=== PATIENT | male | born 1970 | race African-American/Black ===

== ENCOUNTER 2018-03-05 21:01 | Emergency (ER) | payer OTHER ==
--- OUTSIDE RECORDS SUMMARY | 2018-03-05 21:10 | XMS REPORT ---
:1970 External Reference #:[id number] Author Organization [facility] Address [address] [place] [address] [place] [address] Phone [phone] Care Team Providers Name Role Phone Bijan Bronson MD Primary Care Physician Unavailable Payers Type Date Identification Numbers Payment Provider Subscriber Commercial Policy Number: [id number] [employer] Hernan Nicolas PayID: [id number] [address] [address] CARMELO Edwards [address] Medigap Part B Expires: 2016 Policy Number: [employer] Hernan Nicolas [id number] Ppo PayID: [id number] [address] [address] CARMELO Rosado [address] Problems Date Description Provider Status Onset: 07/01/2016 Type 2 diabetes mellitus Bijan Bronson M.D. Active Onset: 07/01/2016 Urticaria Bijan Bronson M.D. Active Onset: 07/01/2016 Psychogenic impotence Bijan Bronson M.D. Active Onset: 11/04/2016 Essential hypertension Cecilia Leiva M.D.,FACP Onset: 02/04/2017 Mixed hyperlipidemia Bijan Bronson M.D. Active Onset: 02/04/2017 Shoulder joint pain Bijan Bronson M.D. Active Onset: 07/01/2016 Disorder of skin AND/OR Bijan Bronson M.D. Inactive subcutaneous tissue Inactive: 11/04/2016 Family History Date Family Member(s) Problem(s) Comments Mother Diabetes Type II Mother due to Diabetes () - complications, plus hypertension Siblings 5 First Brother Diabetes Type II Second Sister Diabetes Type II in 3 of 4 sisters Social History Type Date Description Comments Marital Status Lives With Occupation Currently Working Occupation Massage Therapist [employer] Cigarette Use Former Cigarette Smoker age 12 short time ETOH Use Occasionally consumes alcohol Smoking Patient is a former smoker Recreational Drug Use Denies Drug Use General Hx Text 3 kids Allergies, Adverse Reactions, Alerts Date Description Reaction Status Severity Comments 07/01/2016 NKDA active Medications Medication Date Status Form Strength Qnty SIG Indications Ordering Provider Terbinafine HCL 02/22/ Active Tablets 250mg 14tabs 1 by mouth B35.0 Hernán 2018 every day GINA Stevens x 14 days Metformin HCL 04/22/ Active Tablets 1000mg 60tabs Take 1 E11.9 Hernán 2017 Tablet By GINA Stevens Mouth Two Times Daily Tradjenta 03/25/ Active Tablets 5mg 30tabs take 1 Hernán 2017 tablet by GINA Stevens mouth every day Viagra 11/05/ Active Tablets 100mg 10tabs Use as Bijan Aguiar Directed Aiyana, -- Maximum M.D. Daily Dose Of 1 Per Day Losartan 07/27/ Active Tablets 50mg 30tabs Take 1 E11.9 Hernán Potassium 2017 Tablet By GINA Stevens Mouth Every Day Ketoconazole 07/07/ Active Cream 2% 120gm apply Hernán 2016 twice a GINA Stevens day Multi Complete / Active Capsules 90caps 1 by mouth Johnson 0000 daily Claire Graves M.D.,FACP Azithromycin 01/02/ Hx Tablets 250mg 6tabs 2 tabs by Randi 2017 - mouth on Cotton, 01/26/ day 1; 1 M.D. 2017 tab by mouth every day on days 2-5 Janumet 02/04/ Hx Tablets 50-1000mg 60tabs take 1 E11.9 Biajn 2016 - tablet by Aiyana 03/24/ mouth M.DShahana 2016 twice a day Cialis 11/04/ Hx Tablets 10mg 14tabs every day Johnson 2017 - as needed Claire Graves, 11/05/ MKianna,FACP 2017 Lovastatin 11/04/ Hx Tablets 20mg 90tabs Take 1 Bijan 2016 - Tablet By Aiyana 01/01/ Mouth AT M.D. 2018 Bedtime Viagra 08/05/ Hx Tablets 100mg 10tabs use as Bijan 2016 - directed Pachikara, 11/04/ M.D. 2017 Cialis 07/27/ Hx Tablets 20mg 10tabs 1 tab 1h F52.21 [place] 2016 - before Pachikara, 08/05/ sex, not M.D. 2017 more than once every 3 days. Naproxen 07/27/ Hx Tablets 375mg 30tabs twice a M54.5 [place] 2016 - day with Pachikara, 10/26/ food M.D. 2017 Desloratadine 07/01/ Hx Tablets 5mg 30tabs 1 by mouth L50.8 [place] 2016 - every day Pachikara, 10/26/ M.D. 2018 Pioglitazone / Hx Tablets 15-500mg 60tabs 1 PO twice Johnson HCL-Metformin 0000 - a day MOSES Smyth 02/04/ M.D.,[facility] 2016 Immunizations CPT Code Status Date Vaccine Lot # [id number] Given 04/22/2017 Influenza Virus Vaccine, Quadrivalent, Split, [id number] Preservative Free Vital Signs Date Vital Result Comment 02/22/2018 Height 68 inches 5'8" Weight 187.00 lb Heart Rate 77 /min BP Systolic 128 mmHg BP Diastolic 85 mmHg Body Temperature 97.1 F O2 % BldC Oximetry 100 % BMI (Body Mass Index) 28.4 kg/m2 01/26/2018 Height 68 inches 5'8" Weight 187.00 lb Heart Rate 76 /min BP Systolic 138 mmHg BP Diastolic 90 mmHg BP Systolic Recheck 138 mmHg BP Diastolic Recheck 88 mmHg Body Temperature 97.3 F O2 % BldC Oximetry 98 % BMI (Body Mass Index) 28.4 kg/m2 01/02/2018 Height 68 inches 5'8" Weight 191.00 lb Heart Rate 96 /min BP Systolic Sitting 138 mmHg BP Diastolic Sitting 86 mmHg Body Temperature 99.9 F O2 % BldC Oximetry 99 % BMI (Body Mass Index) 29.0 kg/m2 10/26/2017 Height 68 inches 5'8" Weight 194.50 lb Heart Rate 79 /min BP Systolic 131 mmHg BP Diastolic 88 mmHg BP Systolic Recheck 132 mmHg BP Diastolic Recheck 84 mmHg Body Temperature 97.7 F O2 % BldC Oximetry 97 % BMI (Body Mass Index) 29.6 kg/m2 07/25/2017 Weight 199.50 lb Heart Rate 90 /min BP Systolic 126 mmHg BP Diastolic 74 mmHg Body Temperature 97.3 F O2 % BldC Oximetry 95 % 04/22/2017 Weight 192.00 lb Heart Rate 80 /min BP Systolic 120 mmHg BP Diastolic 80 mmHg Body Temperature 97.5 F O2 % BldC Oximetry 98 % 03/09/2017 Weight 195.00 lb Heart Rate 92 /min BP Systolic Sitting 130 mmHg BP Diastolic Sitting 82 mmHg Body Temperature 97.2 F O2 % BldC Oximetry 98 % 02/04/2017 Height 68 inches 5'8" Weight 199.38 lb Heart Rate 78 /min BP Systolic 150 mmHg BP Diastolic 88 mmHg Body Temperature 97.4 F O2 % BldC Oximetry 99 % BMI (Body Mass Index) 30.3 kg/m2 11/04/2016 Weight 192.50 lb Heart Rate 77 /min BP Systolic Sitting 152 mmHg BP Diastolic Sitting 96 mmHg BP Systolic Recheck 162 mmHg BP Diastolic Recheck 104 mmHg Body Temperature 97.0 F O2 % BldC Oximetry 98 % 08/26/2016 Weight 194.38 lb Heart Rate 74 /min BP Systolic Sitting 144 mmHg BP Diastolic Sitting 82 mmHg Body Temperature 97.6 F O2 % BldC Oximetry 99 % 07/27/2016 Weight 188.00 lb Heart Rate 80 /min BP Systolic Sitting 144 mmHg BP Diastolic Sitting 90 mmHg Body Temperature 96.5 F O2 % BldC Oximetry 98 % 07/01/2016 Height 68 inches 5'8" Weight 184.25 lb Heart Rate 72 /min BP Systolic 156 mmHg BP Diastolic 94 mmHg Body Temperature 97.7 F O2 % BldC Oximetry 98 % BMI (Body Mass Index) 28.0 kg/m2 Results Test Date Test Result H/L Range Note Laboratory test finding 01/26/2018 Hemoglobin A1c 8.0 High 5-7 Comp Metabolic Panel 01/02/2018 Sodium 135 mmol/L 135-145 Potassium 4.0 mmol/L 3.5-5.0 Chloride 99 mmol/L Low 101-111 Co2 Carbon Dioxide 27 mmol/L 22-32 Anion Gap 9 mmol/L 2-11 Glucose 153 mg/dL High 70-100 Blood Urea Nitrogen 17 mg/dL 6-24 Creatinine 1.12 mg/dL 0.67-1.17 BUN/Creatinine Ratio 15.2 8-20 Calcium 9.6 mg/dL 8.6-10.3 Total Protein 7.3 g/dL 6.4-8.9 Albumin 4.4 g/dL 3.2-5.2 Globulin 2.9 g/dL 2-4 Albumin/Globulin Ratio 1.5 1-3 Total Bilirubin 0.70 mg/dL 0.2-1.0 Alkaline Phosphatase 67 U/L 34-104 Alt 10 U/L 7-52 Ast 13 U/L 13-39 Egfr Non- 70.0 >60 Egfr 84.7 >60 1 CBC Auto Diff 01/02/2018 White Blood Count 10.6 10^3/uL 3.5-10.8 Red Blood Count 5.30 10^6/uL 4.00-5.40 Hemoglobin 14.4 g/dL 14.0-18.0 Hematocrit 43 % 42-52 Mean Corpuscular Volume 80 fL 80-94 Mean Corpuscular Hemoglobin 27 pg 27-31 Mean Corpuscular HGB Conc 34 g/dL 31-36 Red Cell Distribution Width 14 % 10.5-15 Platelet Count 161 10^3/uL 150-450 Mean Platelet Volume 8.7 um3 7.4-10.4 Abs Neutrophils 7.9 10^3/uL High 1.5-7.7 Abs Lymphocytes 1.5 10^3/uL 1.0-4.8 Abs Monocytes 1.1 10^3/uL High 0-0.8 Abs Eosinophils 0 10^3/uL 0-0.6 Abs Basophils 0 10^3/uL 0-0.2 Abs Nucleated RBC 0 10^3/uL Granulocyte % 74.7 % 38-83 Lymphocyte % 14.0 % Low 25-47 Monocyte % 10.7 % High 0-7 Eosinophil % 0.3 % 0-6 Basophil % 0.3 % 0-2 Nucleated Red Blood Cells % 0 Laboratory test finding 01/02/2018 C Reactive Protein 103.46 mg/L High < 8.01 Blood Culture SEE RESULT BELOW 2 Urine Culture And 01/02/2018 Urine Culture SEE RESULT 3, 4 Sensitivities BELOW Laboratory test finding 10/26/2017 Hemoglobin A1c 7.2 High 5-7 Urine Microalbumin 10/26/2017 Ur Microalbumin (mg/L) < 15.0 mg/L Random Urine Creatinine 205.82 mg/dL Urine Microalbumin/Creatinine TNP ug/mg <31 5 Lipid Profile (Trig/Chol/HDL) 03/25/2017 Triglycerides 63 mg/dL 6 Cholesterol 170 mg/dL 7 HDL Cholesterol 52.2 mg/dL 8 LDL Cholesterol 105 mg/dL 9 Comp Metabolic Panel 03/25/2017 Sodium 137 mmol/L 133-145 10 Potassium 4.0 mmol/L 3.5-5.0 10 Chloride 104 mmol/L 101-111 10 Co2 Carbon Dioxide 29 mmol/L 22-32 10 Anion Gap 4 mmol/L 2-11 10 Glucose 135 mg/dL High 70-100 10 Blood Urea Nitrogen 17 mg/dL 6-24 10 Creatinine 1.07 mg/dL 0.67-1.17 10 BUN/Creatinine Ratio 15.9 8-20 10 Calcium 10.1 mg/dL 8.6-10.3 10 Total Protein 7.5 g/dL 6.4-8.9 10 Albumin 4.6 g/dL 3.2-5.2 10 Globulin 2.9 g/dL 2-4 10 Albumin/Globulin Ratio 1.6 1-3 10 Total Bilirubin 0.40 mg/dL 0.2-1.0 10 Alkaline Phosphatase 67 U/L 34-104 10 Alt 10 U/L 7-52 10 Ast 14 U/L 13-39 10 Egfr Non- 74.1 >60 10 Egfr 95.3 >60 10, 11 Laboratory test finding 03/09/2017 Hemoglobin A1c 7.0 5-7 Basic Metabolic Panel 2016 Sodium 138 mmol/L 133-145 Potassium 3.7 mmol/L 3.5-5.0 Chloride 106 mmol/L 101-111 Co2 Carbon Dioxide 27 mmol/L 22-32 Anion Gap 5 mmol/L 2-11 Glucose 206 mg/dL High 70-100 Blood Urea Nitrogen 17 mg/dL 6-24 Creatinine 1.10 mg/dL 0.67-1.17 BUN/Creatinine Ratio 15.5 8-20 Calcium 9.2 mg/dL 8.6-10.3 Egfr Non- 71.8 >60 Egfr 92.3 >60 12 Laboratory test 2016 Hemoglobin A1c 7.0 % High Less than 6.0 13 finding (Glyco HGB) Laboratory test 08/24/2016 O&P Ova & Parasites SEE RESULT 14 finding Screen BELOW Parasitic Examination See Comment 15 Comp Metabolic Panel 08/24/2016 Sodium 137 mmol/L 133-145 Potassium 3.9 mmol/L 3.5-5.0 Chloride 103 mmol/L 101-111 Co2 Carbon Dioxide 28 mmol/L 22-32 Anion Gap 6 mmol/L 2-11 Glucose 138 mg/dL High 70-100 Blood Urea Nitrogen 15 mg/dL 6-24 Creatinine 1.17 mg/dL 0.67-1.17 BUN/Creatinine Ratio 12.8 8-20 Calcium 9.4 mg/dL 8.6-10.3 Total Protein 6.8 g/dL 6.4-8.9 Albumin 4.1 g/dL 3.2-5.2 Globulin 2.7 g/dL 2-4 Albumin/Globulin Ratio 1.5 1-3 Total Bilirubin 0.50 mg/dL 0.2-1.0 Alkaline Phosphatase 60 U/L 34-104 Alt 18 U/L 7-52 Ast 20 U/L 13-39 Egfr Non- 67.1 >60 Egfr 86.3 >60 16 Laboratory test finding 08/24/2016 LDL Cholesterol Direct 91 mg/dL 17 Urine Microalbumin Random 08/24/2016 Urine Creatinine 232.59 mg/dL Ur Microalbumin (mg/L) < 15.0 mg/L Urine Microalbumin/Creatinine TNP ug/mg <31 18 Laboratory test finding 08/24/2016 Hemoglobin A1c (Glyco 7.5 % High Less than 6.0 19 HGB) Laboratory test finding 07/27/2016 Hemoglobin A1c 7.3 High 5-7 1 Because ethnic data is not always readily available, this report includes an eGFR for both -Americans and non- Americans. The National Kidney Disease Education Program (NKDEP) does not endorse the use of the MDRD equation for patients that are not between the ages of 18 and 70, are , have extremes of body size, muscle mass, or nutritional status, or are non- or non-. According to the National Kidney Foundation, irrespective of diagnosis, the stage of the disease is based on the level of kidney function: Stage Description GFR(mL/min/1.73 m(2)) 1 Kidney damage with normal or decreased GFR 90 2 Kidney damage with mild decrease in GFR 60-89 3 Moderate decrease in GFR 30-59 4 Severe decrease in GFR 15-29 5 Kidney failure <15 (or dialysis) 2 SEE RESULT BELOW Name: HERNAN NICOLAS : [address]: Randi Mejia MD Acct: [id number] Unit: [id number] AGE: 47 [facility] SEX: M Status: REG REF SPEC: [id number] GIDEON: 01/02/[address]: Randi Mejia MD REQ: [id number] RECD: 01/02/18 STATUS: COMP _ SOURCE: BLOOD,VENO SPDESC: ORDERED: Blood Cult COMMENTS: L AC Procedure Result Reported Site Aerobic Culture Bottle Final 01/07/18- 1329 ML No Growth Day 5 Anaerobic Culture Bottle Final 01/07/18- 1329 ML No Growth Day 5 * ML - Main Lab . END OF REPORT DEPARTMENT OF PATHOLOGY, [address] [place] [address] Gumaro Siddiqui M.D. Director [facility] # [id number] 3 [id number] SEE RESULT BELOW Name: HERNAN NICOLAS : [address]: Randi Mejia MD Acct: [id number] Unit: [id number] AGE: 47 Location: [facility] Re01/02/18 SEX: M Status: REG REF SPEC: [id number] GIDEON: 01/02/18-[address]: Randi Mejia MD REQ: [id number] RECD: 01/02/18 STATUS: COMP _ SOURCE: URINE SPDESC: ORDERED: Urine Culture COMMENTS: [id number] QUERIES: Urine Source: Random Procedure Result Reported Site Urine Culture Final 01/03/18- 1607 ML No Growth (<1,000 CFU/mL) * ML - Main Lab . END OF REPORT DEPARTMENT OF PATHOLOGY, [address] [place] [address] Gumaro Siddiqui M.D. Director [facility] # [id number] 5 Unable to calculate due to low microalbumin 6 Desirable: <150 Borderline High: 150-199 High: 200-499 Very High: >500 7 Desirable: <200 Borderline High: 200-239 High: >239 8 Low: <40 Desirable: 40-60 High: >60 9 Desirable: <100 Near Optimal: 100-129 Borderline High: 130-159 High: 160-189 Very High: >189 10 FASTING 11 Because ethnic data is not always readily available, this report includes an eGFR for both -Americans and non- Americans. The National Kidney Disease Education Program (NKDEP) does not endorse the use of the MDRD equation for patients that are not between the ages of 18 and 70, are , have extremes of body size, muscle mass, or nutritional status, or are non- or non-. According to the National Kidney Foundation, irrespective of diagnosis, the stage of the disease is based on the level of kidney function: Stage Description GFR(mL/min/1.73 m(2)) 1 Kidney damage with normal or decreased GFR 90 2 Kidney damage with mild decrease in GFR 60-89 3 Moderate decrease in GFR 30-59 4 Severe decrease in GFR 15-29 5 Kidney failure <15 (or dialysis) 12 Because ethnic data is not always readily available, this report includes an eGFR for both -Americans and non- Americans. The National Kidney Disease Education Program (NKDEP) does not endorse the use of the MDRD equation for patients that are not between the ages of 18 and 70, are , have extremes of body size, muscle mass, or nutritional status, or are non- or non-. According to the National Kidney Foundation, irrespective of diagnosis, the stage of the disease is based on the level of kidney function: Stage Description GFR(mL/min/1.73 m(2)) 1 Kidney damage with normal or decreased GFR 90 2 Kidney damage with mild decrease in GFR 60-89 3 Moderate decrease in GFR 30-59 4 Severe decrease in GFR 15-29 5 Kidney failure <15 (or dialysis) 13 Therapeutic target for the treatment of diabetes Mellitus patients is <7% HBA1C, and in selective patients <6.0%.Please refer to [place] [employer] Diabetic care guidelines for further information. 14 SEE RESULT BELOW Name: HERNAN NICOLAS : [address]: Bijan Bronson MD Acct: [id number] Unit: [id number] AGE: 45 Location: [facility] Re08/24/16 SEX: M Status: REG REF SPEC: [id number] GIDEON: 08/24/16-[address] [facility] [address]: Bijan Bronson MD REQ: [id number] RECD: 08/26/16610 STATUS: COMP _ SOURCE: STOOL SPDESC: ORDERED: O P: Giar/Crypt Procedure Result Reported Site O P: Giardia/Cryptospor Screen Final 08/27/16- 1140 ML Organism 1 Neg Cryptosporidium/Giardia Giardia and cryptosporidium antigen testing performed by enzyme immunoassay. If patient is immunocompromised or has traveled to or is from a developing country, a full ova and parasite exam with microscopic (OPMIC) is recommended. All samples will be held one month in case full ova and parasite testing is requested. Contact the Microbiology Department at [phone]. TEST LIMITATIONS: As with all diagnostic procedures, the results obtained should be used in conjunction with other clinical information available the physician, including confirmation by another method. Negative results can occur in samples containing antigen below lower limits of detection of the assay. One negative specimen does not rule out the possibility of a parasitic infection. To improve detection it is recommended that three specimens be collected on separate days over a period of not more than seven days. The use of colonic washes, aspirates or other diluted sample types has not been established and could affect the performance of the assay. Stool samples contaminated with an oily or particulate base (eg. Barium, mineral oil etc.) could interfere with the test and are not recommended. CONTINUED ON NEXT PAGE * ML=Testing performed at [facility] DEPARTMENT OF PATHOLOGY, [address] [place] [address] Gumaro Siddiqui M.D. Director [facility] # [id number] Patient: RAGHU NICOLASYD [id number] (Continued) Specimen: [id number] Collected: 08/24/16-999 Received: 08/26/16-1441 (Continued) Procedure Result Reported Site O P: Giardia/Cryptospor Screen Final (continued) 08/27/16- 1140 * ML - [facility] ([place]) . END OF REPORT * ML=Testing performed at [facility] DEPARTMENT OF PATHOLOGY, [address] [place] [address] Gumaro Siddiqui M.D. Director [facility] # [id number] 15 SOURCE: STOOL PARASITIC EXAMINATION FINAL No parasites seen. Cryptosporidium, Cyclospora, and microsporidia are not readily detected by this method. Single negative specimen does not rule out parasitic infection. Test Performed by: [address] [address] 16 Because ethnic data is not always readily available, this report includes an eGFR for both -Americans and non- Americans. The National Kidney Disease Education Program (NKDEP) does not endorse the use of the MDRD equation for patients that are not between the ages of 18 and 70, are , have extremes of body size, muscle mass, or nutritional status, or are non- or non-. According to the National Kidney Foundation, irrespective of diagnosis, the stage of the disease is based on the level of kidney function: Stage Description GFR(mL/min/1.73 m(2)) 1 Kidney damage with normal or decreased GFR 90 2 Kidney damage with mild decrease in GFR 60-89 3 Moderate decrease in GFR 30-59 4 Severe decrease in GFR 15-29 5 Kidney failure <15 (or dialysis) 17 Desirable: <100 mg/dL Near Optimal: 100-129 mg/dL Borderline High: 130-159 mg/dL High: 160-189 mg/dL Very High: >189 mg/dL 18 Unable to calculate due to low microalbumin 19 Therapeutic target for the treatment of diabetes Mellitus patients is <7% HBA1C, and in selective patients <6.0%.Please refer to [place] [employer] Diabetic care guidelines for further information. Procedures Date CPT Code Description Status Comment 06/16/2017 Diabetic Retinal Eye Exam Completed 07/14/2016 Diabetic Retinal Eye Exam Completed Document: 07/14/16 - Consult Ophthalmology/[place] Encounters Type Date Location Provider CPT E/M Dx Office Visit 01/26/2018 1:40p [facility] [place] María [place] [address] E11.9 [place] I10 Office Visit 01/02/2018 10:20a [facility] Randi Mejia [address] R30.0 - Elvis Guthrie R50.9 Office Visit 11/09/2017 2:20p [facility] [place] [address] L21.8 Office Visit 10/26/2017 2:00p [facility] María [place] [address] E11.9 [place] I10 L30.9 Office Visit 07/25/2017 10:20a [facility] - Hernán [place] [address] E11.9 [place] Office Visit 04/22/2017 9:00a [facility] María [place] [address] E11.9 [place] Z23 Office Visit 03/09/2017 8:30a [facility] [place] [address] [address]11[address] H69.93 R63.0 Office Visit 02/04/2017 8:40a [facility] Bijan Bronson M.D. 94[address] E11.9 Medicine - [address] I10 E78.2 M25.511 Office Visit 11/04/2016 8:50a [facility] Johnson Graves, [address] E11.9 [place] Mustapha Guthrie,FACP I10 L30.9 Office Visit 08/26/2016 1:20p [facility] Bijan Bronson M.D. [address]94 E11.9 Medicine - [address] M54.5 L98.9 Office Visit 07/27/2016 1:00p [facility] Kirstin Bronson M.D. [address]11[address]9 Medicine - [address] F52.21 L50.8 M54.5 Office Visit 07/01/2016 2:00p [facility] Bijan Bronson, [address] Z00.00 Medicine - [address] Jerri E11.9 L50.8 L98.9 F52.21 Z00.01 Plan of Care Future Appointment(s):04/26/2018 10:20 am - Hernán Stevens NP at [facility]02/22/2018 - Hernán Stevens, NPR22.2 Localized swelling, mass and lump, trunkNew Xrays:US Soft TissueComments:I am ordering an ultrasound and some bloodwork to further evaluate.B35.0 Tinea barbae and tinea capitisNew Medication:Terbinafine HCL 250 mg
--- NOTE | 2018-03-05 22:18 | ED ---
Abdominal Pain/Male - HPI Summary HPI Summary: This patient is a 47 year old M presenting to [facility] accompanied by his with a chief complaint of waxing and waning right groin pain that radiates to his right testicle since 2 days ago s/p straining secondary to constipation ( has been constipated for 3 weeks). He denies hematuria, SHx. He notes movement aggravates sx. - History of Current Complaint Chief Complaint: EDGeneral Stated Complaint: GROIN PAIN Time Seen by Provider: 03/05/18 21:16 Hx Obtained From: Patient Onset/Duration: Sudden Onset, Lasting Days, Still Present Timing: Intermittent - waxing and waning Severity Initially: Moderate Severity Currently: Moderate Pain Intensity: 7 Pain Scale Used: 0-10 Numeric Location: Groin Radiates: Yes Radiates to: Other - R testicle Aggravating Factor(s): Movement Alleviating Factor(s): Nothing Associated Signs And Symptoms: Positive: Constipation. Negative: Fever, Urinary Symptoms - Allergies/Home Medications Allergies/Adverse Reactions: Allergies Allergy/AdvReac Type Severity Reaction Status Date / Time No Known Allergies Allergy Verified 03/05/18 21:06 PMH/Surg Hx/FS Hx/Imm Hx Cardiovascular History: Reports: Hx Hypertension - ON MEDICATIONS Respiratory History: Denies: Hx Asthma Sensory History: Denies: Hx Legally Blind, Hx Deafness Opthamlomology History: Denies: Hx Legally Blind EENT History: Denies: Hx Deafness Psychiatric History: Denies: Hx Schizophrenia Infectious Disease History: No Infectious Disease History: Denies: Traveled Outside the [place] in Last 30 Days - Family History Known Family History: Positive: Diabetes Negative: Hypertension - Social History Occupation: Employed Full-time Lives: With Family Alcohol Use: Occasionally Substance Use Type: Reports: None Smoking Status (MU): Former Smoker Review of Systems Negative: Fever Positive: Abdominal Pain - right sided groin/suprapubic pain Positive: other - right testicle and right sided groin pain. Negative: hematuria All Other Systems Reviewed And Are Negative: Yes Physical Exam - Summary Physical Exam Summary: Appearance: Well appearing, no pain distress Skin: warm, dry, reflects adequate perfusion Head/face: normal Eyes: EOMI, DIMITRI ENT: normal Neck: supple, non-tender Respiratory: CTA, breath sounds present Cardiovascular: RRR, pulses symmetrical Abdomen: RLQ tenderness, soft Bowel: present Musculoskeletal: normal, strength/ROM intact Neuro: normal, sensory motor intact, A&Ox3 GI: Tenderness over right sided scrotum Triage Information Reviewed: Yes Vital Signs On Initial Exam: Initial Vitals Temp Pulse Resp BP Pulse Ox 98.6 F 84 15 156/104 98 03/05/18 21:02 03/05/18 21:02 03/05/18 21:02 03/05/18 21:02 03/05/18 21:02 Vital Signs Reviewed: Yes Diagnostics - Vital Signs Vital Signs Temp Pulse Resp BP Pulse Ox 03/05/18 21:02 98.6 F 84 15 156/104 98 - Laboratory Result Diagrams: 03/05/18 22:42 03/05/18 22:42 Lab Statement: Any lab studies that have been ordered have been reviewed, and results considered in the medical decision making process. - CT A/P CT Interpretation: Positive (See Comments) CT Interpretation Completed By: Radiologist - 1. Mild stranding around distal right ureter, but no calcified ureteral stones or hydronephrosis. Finding could be secondary to nonradiopaque stone or ureteritis. Repeat study with IV contrast may be helpful. 2. 3 mm nonobstructing left renal calculus. 3. Artifact from under distention versus wall thickening in the rectum with perirectal stranding, possibly secondary to proctitis. Dr. Chance has reviewed this report. A/P w/ CT Interpretation: Positive (See Comments) CT Interpretation Completed By: Radiologist - 1. No CT findings to correlate with patient's symptomatology. Specifically no obstructing renal or ureteral calculi. 2. Punctate nonobstructing left renal calculus. Dr. Chance has reviewed this report. - Ultrasound No standard instances Ultrasound Interpretation: Positive (See Comments) Ultrasound Interpretation Completed By: Radiologist - 1. Findings consistent with right epididymitis. 2. No testicular torsion. Dr. Chance has reviewed this report. Abdominal Pain Fem Course/Dx - Course Course Of Treatment: A 47-year-old M presents to the ED with a CC of right groin and right testicular pain for 2 days. (+) radiation to right testicle, sx worse with movement, constipation (3 weeks). (-) hematuria. Been constipated for 3 weeks, feels straining caused sx to onset. A testicular US reveals: 1. Findings consistent with right epididymitis. 2. No testicular torsion. A CT A/P reveals: 1. Mild stranding around distal right ureter, but no calcified ureteral stones or hydronephrosis. Finding could be secondary to nonradiopaque stone or ureteritis. Repeat study with IV contrast may be helpful. 2. 3 mm nonobstructing left renal calculus. 3. Artifact from under distention versus wall thickening in the rectum with perirectal stranding, possibly secondary to proctitis. A CT A/P w/ reveals: 1. No CT findings to correlate with patient's symptomatology. Specifically no obstructing renal or ureteral calculi. 2. Punctate nonobstructing left renal calculus. In the ED course, pt was given nl saline. Labs and UA obtained and reviewed. - Diagnoses Differential Diagnosis/HQI/PQRI: Epididymitis, Pancreatitis, Renal Colic, Ureteral Stone, Urinary Tract Infection Provider Diagnoses: Epididymo-orchitis Discharge - Sign-Out/Discharge Documenting (check all that apply): Patient Departure - discharge - Discharge Plan Condition: Stable Disposition: HOME Prescriptions: Ibuprofen TAB* [Motrin TAB* 600 MG] 600 mg PO Q8H PRN #15 tab MDD 3 PRN Reason: Pain Levofloxacin TAB* [Levaquin TAB*] 500 mg PO DAILY #10 tab Patient Education Materials: Epididymo-Orchitis (ED) Forms: *Work Release Referrals: Tyler Valdovinos MD [Medical Doctor] - 3 Days Additional Instructions: Return to the emergency department for any new or worsening symptoms. - Billing Disposition and Condition Condition: STABLE Disposition: Home - Attestation Statements Document Initiated by Trinityibjose: Yes Documenting Scribe: Enoc Gongora Provider For Whom Marycarmen is Documenting (Include Credential): Dr. Brien Chance MD Scribe Attestation: Enoc Ortiz, scribed for Dr. Brien Chance MD on 03/06/18 at 0442. Scribe Documentation Reviewed: Yes Provider Attestation: The documentation as recorded by the Enoc chu accurately reflects the service I personally performed and the decisions made by me, Dr. Brien Chance MD
[2018-03-05 22:49] LABS: ABS Basophils 0.1 10^3/ul (0-0.2); ABS Eosinophils 0.4 10^3/ul (0-0.6); ABS Lymphocytes 1.7 10^3/ul (1.0-4.8); ABS Monocytes 0.7 10^3/ul (0-0.8); ABS Neutrophils 5.9 10^3/ul (1.5-7.7); ABS Nucleated RBC 0 10^3/ul; Eosinophil % 4.1 % (0-6); Hematocrit 41 % (42-52); Hemoglobin 13.3 g/dl (14.0-18.0); Lymphocyte % 19.8 % (25-47); Mean Corpuscular HGB Conc 33 g/dl (31-36); Mean Corpuscular Hemoglobin 26 pg (27-31); Mean Corpuscular Volume 80 fL (80-94); Mean Platelet Volume 8.1 um3 (7.4-10.4); Nucleated Red Blood Cells % 0.2; Platelet Count 179 10^3/ul (150-450); Red Blood Count 5.05 10^6/ul (4.00-5.40); Red Cell Distribution Width 14 % (10.5-15); White Blood Count 8.8 10^3/ul (3.5-10.8)
[2018-03-05 22:59] LABS: INR 0.85 (0.77-1.02)
[2018-03-05 23:00] LABS: Urine Appearance Cloudy; Urine Blood 2+ (Negative); Urine Color Yellow; Urine Ketones Negative (Negative); Urine Protein 1+(30 mg/dL) (Negative); Urine Red Blood Cell 3+(>10/hpf) (Absent); Urine Specific Gravity 1.021 (1.010-1.030); Urine Urobilinogen Negative (Negative); Urine White Blood Cell 3+(>20/hpf) (Absent)
[2018-03-05 23:06] LABS: EGFR Non-African American 74.6 (>60)
--- NOTE | 2018-03-05 23:29 | RAD ---
EXAM: CT Abdomen and Pelvis Without Intravenous Contrast CLINICAL HISTORY: 47 years old, male; Pain; Abdominal pain; Generalized; Additional info: Rt flank pain TECHNIQUE: Axial computed tomography images of the abdomen and pelvis without intravenous contrast. All CT scans at this facility use at least one of these dose optimization techniques: automated exposure control; mA and/or kV adjustment per patient size (includes targeted exams where dose is matched to clinical indication); or iterative reconstruction. Coronal and sagittal reformatted images were created and reviewed. COMPARISON: No relevant prior studies available. FINDINGS: Lung bases: Unremarkable. No mass. No consolidation. ABDOMEN: Liver: Unremarkable. Gallbladder and bile ducts: Unremarkable. No calcified stones or biliary dilation. Pancreas: Unremarkable. No mass Spleen: Unremarkable. Adrenals: Unremarkable. No mass. Kidneys and ureters: A 3 mm nonobstructing calculus is present in the left lower pole renal pelvis. No ureteral calculi or hydronephrosis. Stomach and bowel: No obstruction. Mild wall thickening versus under distention of the rectum. There is a disc fracture PELVIS: Appendix: Normal. No findings to suggest acute appendicitis. Bladder: The urinary bladder is decompressed but contains no calcified stones. Reproductive: Unremarkable as visualized. ABDOMEN and PELVIS: Intraperitoneal space: There is mild stranding in the perirectal fat. No free air. Bones/joints: No acute fracture or aggressive osseous lesions. No sacroiliitis. Soft tissues: Wall of the rectum appears thickened with mild perirectal and presacral fat stranding. No perirectal abscess identified. Vasculature: Unremarkable. No abdominal aortic aneurysm. Lymph nodes: Unremarkable. No enlarged lymph nodes. IMPRESSION: 1. Mild stranding around distal right ureter, but no calcified ureteral stones or hydronephrosis. Finding could be secondary to nonradiopaque stone or ureteritis. Repeat study with IV contrast may be helpful. 2. 3 mm nonobstructing left renal calculus. 3. Artifact from under distention versus wall thickening in the rectum with perirectal stranding, possibly secondary to proctitis.
[2018-03-05] MEDS ORDERED: NS 0.9% 1000 ML* 1,000 ML IV ONE (23:32)
--- NOTE | 2018-03-05 23:36 | RAD ---
EXAM: US Scrotum US Duplex Arterial/Venous of the Testicles, Complete CLINICAL HISTORY: 47 years old, male; Pain; Scrotum pain; Additional info: Torsion TECHNIQUE: Real-time ultrasound of the scrotum with color Doppler and image documentation. Real-time duplex ultrasound scan of the arterial and venous flow of the scrotal contents with color Doppler flow and spectral waveform analysis. COMPARISON: No relevant prior studies available. FINDINGS: Right testicle: The right testicle measures 4.3 x 2.2 x 2.7 cm. Normal arterial waveforms. No torsion. Left testicle: The left testicle measures 4.3 x 2.3-2.6 cm. Normal arterial waveforms. No torsion. Epididymides: The right epididymis is enlarged and hyperemic measuring 0.8 x 1.6 cm. The left epididymis measures 0.6 x 1.1 cm with normal blood flow. Scrotum: Unremarkable. IMPRESSION: 1. Findings consistent with right epididymitis. 2. No testicular torsion.
[2018-03-06] MEDS ORDERED: Iodixanol* (CONTRAST) 320 MG/ML 100 ML SDV IV ONE (01:11)
--- NOTE | 2018-03-06 02:13 | RAD ---
EXAM: CT Abdomen and Pelvis With Intravenous Contrast CLINICAL HISTORY: 47 years old, male; Pain; Abdominal pain; Flank; Right; Additional info: Rt flank pain TECHNIQUE: Axial computed tomography images of the abdomen and pelvis with intravenous contrast. All CT scans at this facility use at least one of these dose optimization techniques: automated exposure control; mA and/or kV adjustment per patient size (includes targeted exams where dose is matched to clinical indication); or iterative reconstruction. Coronal and sagittal reformatted images were created and reviewed. CONTRAST: 94 mL of VISI 320 administered intravenously. COMPARISON: A/P WO CT ABD/PEL W/O 03/05/2018 10:22 PM FINDINGS: Lung bases: Normal. No mass. No consolidation. ABDOMEN: Liver: Normal. No masses. Portal and hepatic veins are patent. Gallbladder and bile ducts: Normal. No radiopaque calculi. No ductal dilation. Pancreas: Normal. No mass. No ductal dilation. Spleen: Normal. No splenomegaly. Adrenals: Normal. No mass. Kidneys and ureters: Punctate nonobstructing calculus left inferior pole. No pelvocaliectasis or right renal calculi. Stomach and bowel: Incompletely distended grossly normal stomach. Normal caliber small bowel. No colonic masses or segmental wall thickening. PELVIS: Appendix: Normal caliber appendix without wall thickening or adjacent inflammation. Bladder: Thin-walled bladder with no focal nodularity, perivesicular stranding, or calcifications. Reproductive: Normal sized prostate. Normal seminal vesicles. ABDOMEN and PELVIS: Intraperitoneal space: Normal. No pneumoperitoneum. No ascities. Bones/joints: No fractures. No suspicious bone lesions. Soft tissues: Normal. No hernias. Vasculature: Normal caliber aorta with no evidence of dissection or rupture. Patent IVC. Lymph nodes: Normal. No enlarged lymph nodes. IMPRESSION: 1. No CT findings to correlate with patient's symptomatology. Specifically no obstructing renal or ureteral calculi. 2. Punctate nonobstructing left renal calculus.
[2018-03-06] MEDS ORDERED: Ibuprofen TAB* 600 MG PO ONE (02:33)
[2018-03-06] MEDS ORDERED: Levofloxacin TAB* 500 MG PO ONE (02:33)
[2018-03-06 04:11] VITALS: BP 129/87
== END 2018-03-06 04:10 | disposition home or self-care (01) ==
LOC: ED 21:01
DX: N45.3 Epididymo-orchitis (principal); K59.00 Constipation, unspecified
CPT/HCPCS: 36415; 74176; 74177; 76870; 80053; 81003; 81015; 83690; 85025; 85610; 85730; 87077; 87086; 87186; 96360; 99283; A9270-GY

== ENCOUNTER 2019-02-22 07:57 | Emergency (ER) | payer OTHER ==
[2019-02-22 08:23] VITALS: BP 167/92
--- NOTE | 2019-02-22 08:53 | UC ---
Shoulder Pain HPI - HPI Summary HPI Summary: CHIEF COMPLAINT and HPI: This is a 48-year-old male who complains of 5 day history of right shoulder and axillary pain radiating to the upper right chest. This condition began after he was using a meat slicing machine at work and the machine was repaired and the movement of the machine was faster. Since then the pain has decreased somewhat and the swelling in the right axilla has decreased. He has no complaint of distal pain in the right upper extremity. VITAL SIGNS & SaO2 REVIEWED. Within normal limits unless noted here.hypertension noted of 167/92. The patient is on antihypertensive medication. NURSES NOTE REVIEWED. - History of Current Complaint Stated Complaint: SHOULDER INJURY Time Seen by Provider: 02/22/19 08:15 Pain Intensity: 8 - Allergies/Home Medications Allergies/Adverse Reactions: Allergies Allergy/AdvReac Type Severity Reaction Status Date / Time No Known Allergies Allergy Verified 02/22/19 08:23 Home Medications: Home Medications Losartan TAB* [Cozaar TAB*] 50 mg PO DAILY 02/22/19 [History Confirmed 02/22/19] Lovastatin [Altoprev] 20 mg PO DAILY 02/22/19 [History Confirmed 02/22/19] Metformin ER (NF) 1,000 mg PO BID 02/22/19 [History Confirmed 02/22/19] Sildenafil Citrate [Viagra] 1 tab PO DAILY 02/22/19 [History Confirmed 02/22/19] glipiZIDE [Glipizide] 2.5 mg PO DAILY 02/22/19 [History Confirmed 02/22/19] PMH/Surg Hx/FS Hx/Imm Hx Previously Healthy: Yes Endocrine History: Diabetes Cardiovascular History: Hypertension, Other - hyperlipidemia - Surgical History Surgical History: None - Family History Known Family History: Positive: Diabetes Negative: Hypertension - Social History Alcohol Use: Occasionally Substance Use Type: None Smoking Status (MU): Former Smoker Review of Systems All Other Systems Reviewed And Are Negative: Yes Constitutional: Positive: Negative Respiratory: Positive: Negative Cardiovascular: Positive: Negative Gastrointestinal: Positive: Negative Genitourinary: Positive: Negative Motor: Positive: Negative Neurovascular: Positive: Negative Musculoskeletal: Positive: Myalgia - right shoulder Physical Exam - Summary Physical Exam Summary: Appearance: The patient is well-appearing, is in no pain or distress, and is well-nourished. Eyes: Conjunctiva are clear. Pupils are equal and reactive to light and accommodation. Extra ocular muscle movement is intact. ENT: The hearing is grossly normal, the pharynx is normal, and the TMs are normal. There is no muffled or hoarse voice. No stridor. Neck: The neck is supple and there is no lymphadenopathy. Respiratory: The chest is non-tender to palpation and without crepitus. The lungs are clear, there are normal breath sounds, and there is no respiratory distress. No wheezes, rales or rhonchi. Cardiovascular: Heart sounds reveal a regular rate and rhythm. There are no clicks, rubs or murmurs. There are no carotid bruits or thrills. Circulation is grossly intact. Abdomen: The abdomen is soft and nontender. There is no organomegaly. Bowel sounds are present and within normal limits. No point tenderness at McBurneys point. No CVA tenderness. Musculoskeletal: Strength is intact. The patient moves all extremities. Pain increases at the right shoulder with abduction across chest. (This mirrors movement at work.) Neurological: The patient is alert. Motor and sensory are examination grossly intact. Speech is normal. Psychological: The patient displays age appropriate behavior, and is conversant. GCS=15. Skin: Negative for rashes. Triage Information Reviewed: Yes Vital Signs: Initial Vital Signs Temp 98.1 F 02/22/19 08:17 Pulse 75 02/22/19 08:17 Resp 18 02/22/19 08:17 BP 167/92 02/22/19 08:17 Pulse Ox 98 02/22/19 08:17 Shoulder Course/Dx - Course Course Of Treatment: 48-year-old male with complaint of a repetitive use injury at work getting worse over the last 5 days. X-rays negative for fracture of the right shoulder. examination of the right shoulder shows full range of motion. There is mild swelling in the axillary area. There is no chest pain. There is no shortness of breath. The cardiac and respiratory exam are within normal limits. The differential diagnosis includes bursitis and tendinitis. My diagnosis is repetitive use injury with muscle strain in the area of the right shoulder. He was given a sling and will follow up with occupational medicine tomorrow. He was given a work release for the next 4 days. - Differential Dx/Diagnosis Differential Diagnosis/HQI/PQRI: AC Separation, Arthritis, Bursitis, Fracture ( Closed), Sprain, Strain Provider Diagnosis: Muscle strain Discharge ED - Sign-Out/Discharge Documenting (check all that apply): Patient Departure All imaging exams completed and their final reports reviewed: Yes - Discharge Plan Condition: Stable Disposition: HOME Patient Education Materials: Muscle Strain (DC) Forms: *Work Release Referrals: Hernán Stevens NP [Primary Care Provider] - Additional Instructions: Diagnosis: muscle strain right arm and shoulder Treatment: ibuprofen WE DISCUSSED: PLEASE SEEK CARE AT THE EMERGENCY DEPARTMENT IF SYMPTOMS WORSEN OR IF NEW SYMPTOMS DEVELOP. FOLLOW UP WITH YOUR PRIMARY CARE PHYSICIAN IF CONDITION CONTINUES BEYOND 3 DAYS WITHOUT IMPROVEMENT. YOUR DIAGNOSIS IS: right upper arm and shoulder muscle strain YOUR PRESCRIPTION RECOMMENDATION IS:. No prescription medications but use ibuprofen and Tylenol as described below. OTHER INSTRUCTIONS: Hypertension Discharge Instructions:your blood pressure was elevated here today. Your blood pressure reading today was 167/92, indicating HYPERTENSION. Follow- up with your primary care provider within 4 weeks for blood pressure check and appropriate recommendations and treatment, as needed. FOR PAIN AND/OR SLEEP: For pain: Ibuprofen (Motrin and other brand names) 400-600mg PLUS acetaminophen (Tylenol and other brand names) 500mg - 1000mg every 8 hours. Do not use your arm in a way that would create repetitive strain on your shoulder for the next 4 days. Use warm moist heat in the morning. For acute pain after movement. Use ice in a plastic bag covered by a towel for 10 minutes to decrease the pain. You can repeat this every few hours as needed - Billing Disposition and Condition Condition: STABLE Disposition: Home
== END 2019-02-22 09:15 | disposition home or self-care (01) ==
LOC: UCEAST 07:57
DX: S46.911A Strain of unspecified muscle, fascia and tendon at shoulder and upper arm level, right arm, initial encounter (principal); X50.0XXA Overexertion from strenuous movement or load, initial encounter; Y93.89 Activity, other specified; Y92.89 Other specified places as the place of occurrence of the external cause; Y99.0 Civilian activity done for income or pay; E11.9 Type 2 diabetes mellitus without complications; I10 Essential (primary) hypertension; Z87.891 Personal history of nicotine dependence
CPT/HCPCS: 99212; G0463